=== PATIENT | female | born 1955 | race Caucasian/White ===

== ENCOUNTER 2018-01-25 18:32 | Emergency (ER) | payer OTHER ==
[~2018-01-25] VITALS: Ht 162.6 cm; Wt 56.2 kg
[~2018-01-25 18:32] MED LIST: CELEXA20 MG; CORGARD40 M1; COZAAR; IMITREX 25 MG T25 M1 PO; PHENERGAN25 MG; VENLAFAXIN75 MG/1 T2; ZOFRAN; ZOLOFT PO
[2018-01-25] MEDS ORDERED: CELEXA40 MG PO (18:46)
[2018-01-25] MEDS ORDERED: BUTALB-APAP-CA1 EACH PO (18:46)
[2018-01-25] MEDS ORDERED: LEVSIN0.125 MG PO (18:47)
[2018-01-25] MEDS ORDERED: PRINZIDE 20-251 EACH PO (18:47)
[2018-01-25] MEDS ORDERED: CARDIZEM30 MG PO (18:48)
[2018-01-25] MEDS ORDERED: SPIRIVA INH (18:48)
[2018-01-25] MEDS ORDERED: CLONIDINE0.1 PO (18:48)
[2018-01-25] MEDS ORDERED: ACTICIN 5% CREA60 G1 TOP (19:09)
[2018-01-25 19:28] VITALS: BP 0/0
== END 2018-01-25 19:29 | disposition home or self-care (01) ==
LOC: M.ERS 18:32
DX: B86 Scabies (principal); I10 Essential (primary) hypertension; G43.909 Migraine, unspecified, not intractable, without status migrainosus; M81.0 Age-related osteoporosis without current pathological fracture; Z96.652 Presence of left artificial knee joint; Z88.6 Allergy status to analgesic agent; Z88.1 Allergy status to other antibiotic agents; Z88.0 Allergy status to penicillin; Z88.8 Allergy status to other drugs, medicaments and biological substances

== ENCOUNTER 2018-02-02 18:07 | Emergency (ER) | payer OTHER ==
[~2018-02-02] VITALS: Ht 162.6 cm; Wt 56.2 kg
[~2018-02-02 18:07] MED LIST changes: +ACTICIN 5% CREA60 G1 TOP; +BUTALB-APAP-CA1 EACH PO; +CARDIZEM30 MG PO; +CELEXA40 MG PO; +CLONIDINE0.1 PO; +LEVSIN0.125 MG PO; +PRINZIDE 20-251 EACH PO; +SPIRIVA INH
[2018-02-02] MEDS ORDERED: MEDROLDOSEPACK PO (18:34)
[2018-02-02] MEDS ORDERED: BACTRIM DS TAB1 EACH PO (18:34)
[2018-02-02] MEDS ORDERED: KEFLEX500 M1 PO (18:34)
[2018-02-02 18:45] VITALS: BP 151/93
== END 2018-02-02 18:47 | disposition home or self-care (01) ==
LOC: M.ERS 18:07
DX: L73.9 Follicular disorder, unspecified (principal); I10 Essential (primary) hypertension; G43.909 Migraine, unspecified, not intractable, without status migrainosus; Z88.0 Allergy status to penicillin; Z88.1 Allergy status to other antibiotic agents; Z88.8 Allergy status to other drugs, medicaments and biological substances

== ENCOUNTER 2018-02-21 19:39 | Emergency (ER) | payer OTHER ==
[~2018-02-21] VITALS: Ht 162.6 cm; Wt 57.6 kg
[~2018-02-21 19:39] MED LIST changes: +BACTRIM DS TAB1 EACH PO; +KEFLEX500 M1 PO; +MEDROLDOSEPACK PO
[2018-02-21] MEDS ORDERED: BEVESPI AEROS10.7 GM (19:48)
[2018-02-21 20:08] LABS: ABSOLUTE EOSINOPHILS 0.2 thou/uL (0.0-0.7); ABSOLUTE LYMPHOCYTES 1.5 thou/uL (0.8-5.3); ABSOLUTE MONOCYTES 0.4 thou/uL (0.0-1.2); ABSOLUTE NEUTROPHILS 2.9 thou/uL (1.6-8.1); BASOPHILS 0.6 %; EOSINOPHILS 4.1 %; HEMATOCRIT 27.6 % (37.0-47.0); HEMOGLOBIN 9.4 gm/dL (12.0-15.0); LYMPHOCYTES 30.2 %; MCH 31.1 pg (26.0-34.0); MCHC 34.2 g/dL (28.0-37.0); MCV 90.9 fL (80.0-100.0); MONOCYTES 7.8 %; MPV 7.5 fl. (7.2-11.1); NUCLEATED RBCS 0 /100WBC; PLATELET COUNT* 241 thou/uL (150-400); POLYS 57.3 %; RBC 3.04 mil/uL (4.20-5.00); RDW-CV 13.2 % (10.5-14.5)
[2018-02-21 20:20] LABS: APTT 24.4 Seconds (25.0-31.3); PROTIME 9.4 Seconds (9.20-11.50)
[2018-02-21 20:31] LABS: ANION GAP 13 mmol/L (7-16); BUN 20 mg/dL (7-18); CALCIUM 7.4 mg/dL (8.5-10.1); CHLORIDE 110 mmol/L (98-107); CO2 20 mmol/L (21-32); CREATININE 0.9 mg/dL (0.6-1.3); GLUCOSE 83 mg/dL (70-99); POTASSIUM 3.3 mmol/L (3.5-5.1); SODIUM 143 mmol/L (136-145)
[2018-02-21 20:50] LABS: ALBUMIN 3.1 g/dL (3.4-5.0); ALKALINE PHOSPHATASE 75 U/L (46-116); CK-MB MASS < 0.5 ng/mL (<0.5-3.6); LIPASE 75 U/L (73-393); MAGNESIUM 1.7 mg/dL (1.8-2.4); NT-PRO BRAIN NAT PEPTIDE 1523 pg/mL (<300); SGOT 23 U/L (15-37); SGPT 26 U/L (30-65); TOTAL BILIRUBIN 0.2 mg/dL (<0.1-1.0); TOTAL PROTEIN 6.2 g/dL (6.4-8.2); TROPONIN-I LEVEL <0.06 ng/mL (<0.06)
[2018-02-21] MEDS ORDERED: PREDNISONE 20 M20 M1 PO (21:07)
[2018-02-21] MEDS ORDERED: VENTOLIN HFA 1818 GM INH (21:07)
[2018-02-21 21:21] VITALS: BP 117/75
--- NOTE | 2018-02-22 13:37 | EKG ---
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 : 1955 Requested By: Bryn Clarke Order Number: [id number] MD: Darian Hernandez Measurements Intervals [place] Rate: 95 P: 36 RI: 166 QRS: 12 QRSD: 100 T: 24 QT: 339 QTc: 426 Interpretive Statements Sinus rhythm Low voltage, extremity leads Artifact in lead(s) I,II,aVR,aVL,V1,V2,V3,V4,V5,V6 and baseline wander in lead (s) II,III,aVF No previous ECG available for comparison Electronically Signed On 02-22-2018 13:37:44 CDT by Darian Hernandez [email or web address] <ELECTRONICALLY SIGNED> By: Darian Hernandez MD, FACC 02/22/18 [id number] Darian Hernandez MD, FAC /EPI
== END 2018-02-21 21:22 | disposition home or self-care (01) ==
LOC: M.ERS 19:39
PROVIDERS: Family Medicine
DX: R07.89 Other chest pain (principal); I10 Essential (primary) hypertension; G43.909 Migraine, unspecified, not intractable, without status migrainosus; M81.0 Age-related osteoporosis without current pathological fracture; M19.90 Unspecified osteoarthritis, unspecified site; Z90.710 Acquired absence of both cervix and uterus; Z96.652 Presence of left artificial knee joint; Z88.0 Allergy status to penicillin; Z88.6 Allergy status to analgesic agent; Z88.1 Allergy status to other antibiotic agents; Z88.8 Allergy status to other drugs, medicaments and biological substances